=== PATIENT | male | born 1975 | race Caucasian/White ===

== ENCOUNTER 2018-05-20 15:46 | Inpatient (IN) | payer MEDICAID ==
[2018-05-20] MEDS ORDERED: Acetaminophen Soln 650 MG/20.3 ML UD Cup PO ONE (16:20)
--- NOTE | 2018-05-20 16:21 | EDM.PDOC ---
ED HPI GENERAL MEDICAL PROBLEM - General Chief Complaint: ENT Problem Stated Complaint: FLU LIKE SYMPTOMS, FEVER, SWOLLEN THROAT Time Seen by Provider: 05/20/18 16:16 Source of Information: Reports: Patient History Limitations: Reports: No Limitations - History of Present Illness INITIAL COMMENTS - FREE TEXT/NARRATIVE: Pt with sore throat x 2 days. With diarrhea since last night. Fever x 2 days. Has not taken Tylenol or Motrin. With difficulty swallowing. No vomiting. Not taking in many liquids today. Onset: Sudden Onset Date: 05/18/18 Duration: Getting Worse Quality: Reports: Sharp Severity: Moderate Improves with: Reports: None Worsens with: Reports: Eating Associated Symptoms: Reports: Fever/Chills, Headaches, Loss of Appetite, Other ( diarrhea) Generalized Pain Score (Numeric/FACES): 8 - Related Data Allergies Allergy/AdvReac Type Severity Reaction Status Date / Time Tetanus Vaccines and Toxoid Allergy Edema Verified 05/20/18 16:01 Home Meds: Home Meds Penicillin V Potassium [IJD: Penicillin V Potassium] 500 mg PO .EVERY 6 HOURS # 40 tab 10/03/16 [Rx] Past Medical History - Past Health History Medical/Surgical History: Denies Medical/Surgical History - Infectious Disease History Infectious Disease History: Reports: Chicken Pox - Past Surgical History Musculoskeletal Surgical History: Reports: Arthroscopic Knee Social & Family History - Tobacco Use Smoking Status *Q: Current Every Day Smoker Years of Tobacco use: 20 Packs/Tins Daily: 0.5 - Caffeine Use Caffeine Use: Reports: Coffee, Soda, Tea - Recreational Drug Use Recreational Drug Use: No ED ROS ENT - Review of Systems Review Of Systems: See Below Constitutional: Reports: Fever, Chills, Weakness, Decreased Appetite HEENT: Reports: Throat Pain, Throat Swelling Respiratory: Reports: No Symptoms Cardiovascular: Reports: No Symptoms Endocrine: Reports: No Symptoms GI/Abdominal: Reports: Diarrhea Musculoskeletal: Reports: No Symptoms Skin: Reports: No Symptoms ED EXAM, ENT - Physical Exam Exam: See Below Exam Limited By: No Limitations General Appearance: Alert, WD/WN, Moderate Distress, Obese, Other (sweating) Ears: Normal External Exam, Normal Canal, Hearing Grossly Normal, Normal TMs, TM Erythema (right) Nose: Normal Inspection, Normal Mucousa, No Blood Mouth/Throat: Normal Gums, Normal Lips, Normal Teeth, Muffled Voice, Pharyngeal Erythema, Throat Pain, Tonsillar Erythema, Other (petechial rash to posterior pharynx) Head: Atraumatic, Normocephalic Neck: Normal Inspection, Supple, Non-Tender, Full Range of Motion Respiratory/Chest: No Respiratory Distress, Lungs Clear, Normal Breath Sounds, No Accessory Muscle Use, Chest Non-Tender Cardiovascular: Normal Peripheral Pulses, Regular Rate, Rhythm, No Edema, No Gallop, No JVD, No Murmur, No Rub GI/Abdominal: Normal Bowel Sounds, Soft, Non-Tender, No Organomegaly, No Distention, No Abnormal Bruit, No Mass Extremities: Normal Inspection, Normal Range of Motion, Non-Tender, No Pedal Edema, Normal Capillary Refill Neurological: Alert, Oriented, CN II-XII Intact, Normal Cognition, Normal Gait, Normal Reflexes, No Motor/Sensory Deficits Psychiatric: Normal Affect, Normal Mood Course - Vital Signs Last Recorded V/S: Last Vital Signs Temp 101.2 F H 05/20/18 17:19 Pulse 100 05/20/18 15:56 Resp 18 05/20/18 15:56 BP 132/83 05/20/18 15:56 Pulse Ox 95 05/20/18 15:56 - Orders/Labs/Meds Orders: Active Orders 24 hr Category Date Time Status Soft Tissue Neck w Cont [CT] Stat Exams 05/20/18 17:23 Taken CULTURE STREP A CONFIRMATION [] Stat Lab 05/20/18 16:00 Results STREP SCRN A RAPID W CULT CONF [] Stat Lab 05/20/18 16:00 Results Ampicillin/Sulbactam Na [Unasyn] 1.5 gm Med 05/20/18 19:15 Ordered Sodium Chloride 0.9% [Normal Saline] 50 ml IV Q6H Iopamidol [Isovue-300 (61%)] Med 05/20/18 17:45 Active 100 ml IV . DIRECTED Sodium Chloride 0.9% [Normal Saline] 100 ml Med 05/20/18 17:45 Active IV ASDIRECTED Medication Orders Sodium Chloride (Normal Saline) 100 mls @ 3 mls/sec IV ASDIRECTED SOUMYA Last Admin: 05/20/18 17:46 Dose: 3 mls/sec Ampicillin Sodium/Sulbactam (Sodium 1.5 gm/ Sodium Chloride) 50 mls @ 100 mls/ hr IV Q6H SOUMYA Iopamidol (Isovue-300 (61%)) 100 ml IV . DIRECTED SOUMYA Last Admin: 05/20/18 17:46 Dose: 100 ml Labs: Laboratory Tests 05/20/18 05/20/18 05/20/18 Range/Units 16:34 16:34 16:34 WBC 18.6 H (4.5-11.0) K/uL RBC 5.40 (4.30-5.90) M/uL Hgb 15.5 H (12.0-15.0) g/dL Hct 45.2 (40.0-54.0) % MCV 84 (80-98) fL MCH 29 (27-31) pg MCHC 34 (32-36) % Plt Count 242 (150-400) K/uL Neut % (Auto) 84 H (36-66) % Lymph % (Auto) 6 L (24-44) % Citrus % (Auto) 11 H (2-6) % Eos % (Auto) 0 L (2-4) % Baso % (Auto) 0 (0-1) % Sodium 131 L (140-148) mmol/L Potassium 3.5 L (3.6-5.2) mmol/L Chloride 97 L (100-108) mmol/L Carbon Dioxide 27 (21-32) mmol/L Anion Gap 10.5 (5.0-14.0) mmol/L BUN 6 L (7-18) mg/dL Creatinine 1.1 (0.8-1.3) mg/dL Est Cr Clr Drug Dosing 93.17 mL/min Estimated GFR (MDRD) > 60 (>60) Glucose 117 H (74-106) mg/dL Lactic Acid (0.4-2.0) mmol/L Calcium 8.6 (8.5-10.1) mg/dL Total Bilirubin 0.8 (0.2-1.0) mg/dL AST 19 (15-37) U/L ALT 39 (12-78) U/L Alkaline Phosphatase 82 (46-116) U/L Total Protein 7.8 (6.4-8.2) g/dL Albumin 3.4 (3.4-5.0) g/dL Globulin 4.4 H (2.3-3.5) g/dL Albumin/Globulin Ratio 0.8 L (1.2-2.2) Monoscreen Negative (NEGATIVE) 05/20/18 Range/Units 17:01 WBC (4.5-11.0) K/uL RBC (4.30-5.90) M/uL Hgb (12.0-15.0) g/dL Hct (40.0-54.0) % MCV (80-98) fL MCH (27-31) pg MCHC (32-36) % Plt Count (150-400) K/uL Neut % (Auto) (36-66) % Lymph % (Auto) (24-44) % Citrus % (Auto) (2-6) % Eos % (Auto) (2-4) % Baso % (Auto) (0-1) % Sodium (140-148) mmol/L Potassium (3.6-5.2) mmol/L Chloride (100-108) mmol/L Carbon Dioxide (21-32) mmol/L Anion Gap (5.0-14.0) mmol/L BUN (7-18) mg/dL Creatinine (0.8-1.3) mg/dL Est Cr Clr Drug Dosing mL/min Estimated GFR (MDRD) (>60) Glucose (74-106) mg/dL Lactic Acid 1.5 (0.4-2.0) mmol/L Calcium (8.5-10.1) mg/dL Total Bilirubin (0.2-1.0) mg/dL AST (15-37) U/L ALT (12-78) U/L Alkaline Phosphatase (46-116) U/L Total Protein (6.4-8.2) g/dL Albumin (3.4-5.0) g/dL Globulin (2.3-3.5) g/dL Albumin/Globulin Ratio (1.2-2.2) Monoscreen (NEGATIVE) Meds: Medications Generic Name Dose Route Start Last Admin Trade Name Freq PRN Reason Stop Dose Admin Sodium Chloride 100 mls @ 3 mls/sec 05/20/18 17:45 05/20/18 17:46 Normal Saline IV 3 mls/sec ASDIRECTED SOUMYA Administration Ampicillin Sodium/Sulbactam 50 mls @ 100 mls/hr 05/20/18 19:15 Sodium 1.5 gm/ Sodium Chloride IV Q6H SOUMYA Iopamidol 100 ml 05/20/18 17:45 05/20/18 17:46 Isovue-300 (61%) IV 100 ml . DIRECTED SOUMYA Administration Discontinued Medications Generic Name Dose Route Start Last Admin Trade Name Nhan PRN Reason Stop Dose Admin Acetaminophen 650 mg 05/20/18 16:20 05/20/18 16:30 Tylenol PO 05/20/18 16:21 650 mg ONETIME ONE Administration Dexamethasone 4 mg 05/20/18 18:49 05/20/18 18:59 Dexamethasone IVPUSH 05/20/18 18:50 4 mg ONETIME ONE Administration Sodium Chloride 1,000 mls @ 999 mls/min 05/20/18 16:59 05/20/18 17:20 Normal Saline IV 05/20/18 17:00 999 mls/min .BOLUS ONE Administration Sodium Chloride 1,000 mls @ 125 mls/min 05/20/18 18:55 05/20/18 18:57 Normal Saline IV 05/20/18 19:02 125 mls/min .BOLUS ONE Administration Departure - Departure Time of Disposition: 19:12 Disposition: Admitted As Inpatient 66 Condition: Fair Clinical Impression: Peritonsillar abscess - Discharge Information *PRESCRIPTION DRUG MONITORING PROGRAM REVIEWED*: Not Applicable *COPY OF PRESCRIPTION DRUG MONITORING REPORT IN PATIENT RAI: Not Applicable Referrals: PCP,None [Primary Care Provider] - Forms: ED Department Discharge Additional Instructions: Tylenol liquid given with reduction in fever. Labs with elevated WBC. CT of neck with contrast shows right peritonsillar abscess. ENT Dr Raza from [facility], consulted who recommends admission for IV antibiotics based on size of abscess. Also dehydration per labs noted. NS 1000ml infused. Additional NS initiated @125/hr. Decadron 4mg IV ordered also for comfort measures. Dr Govea consulted for admission. Pt significant other agrees with plan. IV Unasyn initiated. - Problem List & Annotations (1) Peritonsillar abscess SNOMED Code(s): 82468010 Code(s): J36 - PERITONSILLAR ABSCESS Status: Acute Priority: Low Current Visit: Yes - My Orders Last 24 Hours: My Active Orders 05/20/18 16:00 CULTURE STREP A CONFIRMATION [RM] Stat STREP SCRN A RAPID W CULT CONF [RM] Stat 05/20/18 17:23 Soft Tissue Neck w Cont [CT] Stat 05/20/18 17:45 Iopamidol [Isovue-300 (61%)] 100 ml IV . DIRECTED Sodium Chloride 0.9% [Normal Saline] 100 ml IV ASDIRECTED 05/20/18 19:15 Ampicillin/Sulbactam Na [Unasyn] 1.5 gm Sodium Chloride 0.9% [Normal Saline] 50 ml IV Q6H - Assessment/Plan Last 24 Hours: My Active Orders 05/20/18 16:00 CULTURE STREP A CONFIRMATION [] Stat STREP SCRN A RAPID W CULT CONF [RM] Stat 05/20/18 17:23 Soft Tissue Neck w Cont [CT] Stat 05/20/18 17:45 Iopamidol [Isovue-300 (61%)] 100 ml IV . DIRECTED Sodium Chloride 0.9% [Normal Saline] 100 ml IV ASDIRECTED 05/20/18 19:15 Ampicillin/Sulbactam Na [Unasyn] 1.5 gm Sodium Chloride 0.9% [Normal Saline] 50 ml IV Q6H
[2018-05-20] MEDS ORDERED: Sodium Chloride 0.9% 1,000 ML IV ONE ×2 (16:59→18:55)
[2018-05-20] MEDS ORDERED: Sodium Chloride 0.9% 100 ML IV SCH (17:45)
[2018-05-20] MEDS ORDERED: Iopamidol 612 MG/ML 100 ML Bottle IV SCH (17:45)
[2018-05-20] MEDS ORDERED: Dexamethasone 4 MG/ML SDV IVPUSH ONE (18:49)
[2018-05-20] MEDS ORDERED: Ampicillin/Sulbactam Na 1.5 GM in Sodium Chloride 0.9% 50 ML IV SCH (19:15)
[2018-05-20] MEDS ORDERED: Sodium Chloride 0.9% 1,000 ML IV SCH (20:07)
[2018-05-20] MEDS ORDERED: Ondansetron 4 MG/2 ML SDV IV PRN (20:07)
[2018-05-20] MEDS ORDERED: Sodium Chloride 0.9% 10 ML Syringe FLUSH PRN (20:07)
--- NOTE | 2018-05-20 20:22 | PCM.HP ---
H&P History of Present Illness - General Date of Service: 05/20/18 Admit Problem/Dx: Admission Diagnosis/Problem Admission Diagnosis/Problem Abscess Source of Information: Patient, Family, Provider, RN Notes Reviewed History Limitations: Reports: No Limitations - History of Present Illness Initial Comments - Free Text/Narative: Mr. Medina is a 42-year-old gentleman who is admitted through the emergency department with pharyngitis, and dysphagia, as well as fever and chills. Symptoms have been per present in progressive over the past 2 days, more severe today with significant difficulty in swallowing because of pain. On evaluation in emergency department he was noted have temperature elevation as well as leukocytosis. Strep screen was negative as well as a Monospot. CT scan of the neck shows evidence of tonsillitis with a peritonsillar abscess. Abscess found to be 1.2-1.4 cm in size. 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 He denies any significant difficulty with bleeding but does note significant pain and soreness with swallowing. Generalized Pain Score (Numeric/FACES): 8 - Related Data Allergies/Adverse Reactions: Allergies Allergy/AdvReac Type Severity Reaction Status Date / Time Tetanus Vaccines and Toxoid Allergy Edema Verified 05/20/18 16:01 Home Medications: Home Meds Penicillin V Potassium [IJD: Penicillin V Potassium] 500 mg PO .EVERY 6 HOURS # 40 tab 10/03/16 [Rx] Past Medical History - Past Health History Medical/Surgical History: Denies Medical/Surgical History - Infectious Disease History Infectious Disease History: Reports: Chicken Pox - Past Surgical History Musculoskeletal Surgical History: Reports: Arthroscopic Knee Social & Family History - Tobacco Use Smoking Status *Q: Current Every Day Smoker Years of Tobacco use: 20 Packs/Tins Daily: 0.5 - Caffeine Use Caffeine Use: Reports: Coffee, Soda, Tea - Recreational Drug Use Recreational Drug Use: No H&P Review of Systems - Review of Systems: Review Of Systems: See Below General: Reports: Fever, Chills, Malaise, Weakness, Diaphoresis HEENT: Reports: Dysphasia, Sore Throat. Denies: Ear Pain, Headaches Pulmonary: Reports: No Symptoms Cardiovascular: Reports: No Symptoms Gastrointestinal: Reports: No Symptoms Genitourinary: Reports: No Symptoms Musculoskeletal: Reports: No Symptoms Skin: Reports: No Symptoms Psychiatric: Reports: No Symptoms Neurological: Reports: No Symptoms Hematologic/Lymphatic: Reports: No Symptoms Immunologic: Reports: No Symptoms Exam - Exam Exam: See Below - Vital Signs Vital Signs: Last Vital Signs Temp 97.6 F 05/20/18 19:36 Pulse 74 05/20/18 19:36 Resp 17 05/20/18 19:36 BP 122/66 05/20/18 19:36 Pulse Ox 96 05/20/18 19:36 Weight: 240 lb - Exam Quality Assessment: DVT Prophylaxis General: Alert, Oriented, Cooperative, Moderate Distress HEENT: Conjunctiva Clear, Hearing Intact, Mucosa Moist & [place], Normal Nasal Septum, Posterior Pharynx Clear, Pupils Equal Neck: Supple, Trachea Midline, +2 Carotid Pulse wo Bruit Lungs: Clear to Auscultation, Normal Respiratory Effort Cardiovascular: Regular Rate, Regular Rhythm, Normal S1, Normal S2. No: Systolic Murmur, Diastolic Murmur GI/Abdominal Exam: Soft, Non-Tender, No Organomegaly, No Distention Back Exam: Normal Inspection, Full Range of Motion Extremities: Non-Tender, No Pedal Edema Skin: Warm, Dry, Intact Neurological: Cranial Nerves Intact, Strength Equal Bilateral, Normal Speech, Normal Tone, Sensation Intact. No: Focal Deficit Neuro Extensive - Mental Status: Alert, Oriented x3, Normal Mood/Affect, Normal Cognition, Memory Intact - Patient Data Lab Results Last 24 hrs: Laboratory Results - last 24 hr 05/20/18 05/20/18 05/20/18 Range/Units 16:34 16:34 16:34 WBC 18.6 H (4.5-11.0) K/uL RBC 5.40 (4.30-5.90) M/uL Hgb 15.5 H (12.0-15.0) g/dL Hct 45.2 (40.0-54.0) % MCV 84 (80-98) fL MCH 29 (27-31) pg MCHC 34 (32-36) % Plt Count 242 (150-400) K/uL Neut % (Auto) 84 H (36-66) % Lymph % (Auto) 6 L (24-44) % Mcminn % (Auto) 11 H (2-6) % Eos % (Auto) 0 L (2-4) % Baso % (Auto) 0 (0-1) % Sodium 131 L (140-148) mmol/L Potassium 3.5 L (3.6-5.2) mmol/L Chloride 97 L (100-108) mmol/L Carbon Dioxide 27 (21-32) mmol/L Anion Gap 10.5 (5.0-14.0) mmol/L BUN 6 L (7-18) mg/dL Creatinine 1.1 (0.8-1.3) mg/dL Est Cr Clr Drug Dosing 93.17 mL/min Estimated GFR (MDRD) > 60 (>60) Glucose 117 H (74-106) mg/dL Lactic Acid (0.4-2.0) mmol/L Calcium 8.6 (8.5-10.1) mg/dL Total Bilirubin 0.8 (0.2-1.0) mg/dL AST 19 (15-37) U/L ALT 39 (12-78) U/L Alkaline Phosphatase 82 (46-116) U/L Total Protein 7.8 (6.4-8.2) g/dL Albumin 3.4 (3.4-5.0) g/dL Globulin 4.4 H (2.3-3.5) g/dL Albumin/Globulin Ratio 0.8 L (1.2-2.2) Monoscreen Negative (NEGATIVE) 05/20/18 Range/Units 17:01 WBC (4.5-11.0) K/uL RBC (4.30-5.90) M/uL Hgb (12.0-15.0) g/dL Hct (40.0-54.0) % MCV (80-98) fL MCH (27-31) pg MCHC (32-36) % Plt Count (150-400) K/uL Neut % (Auto) (36-66) % Lymph % (Auto) (24-44) % Mcminn % (Auto) (2-6) % Eos % (Auto) (2-4) % Baso % (Auto) (0-1) % Sodium (140-148) mmol/L Potassium (3.6-5.2) mmol/L Chloride (100-108) mmol/L Carbon Dioxide (21-32) mmol/L Anion Gap (5.0-14.0) mmol/L BUN (7-18) mg/dL Creatinine (0.8-1.3) mg/dL Est Cr Clr Drug Dosing mL/min Estimated GFR (MDRD) (>60) Glucose (74-106) mg/dL Lactic Acid 1.5 (0.4-2.0) mmol/L Calcium (8.5-10.1) mg/dL Total Bilirubin (0.2-1.0) mg/dL AST (15-37) U/L ALT (12-78) U/L Alkaline Phosphatase (46-116) U/L Total Protein (6.4-8.2) g/dL Albumin (3.4-5.0) g/dL Globulin (2.3-3.5) g/dL Albumin/Globulin Ratio (1.2-2.2) Monoscreen (NEGATIVE) Result Diagrams: 05/20/18 16:34 05/20/18 16:34 Obey Results Last 24 hrs: Microbiology 05/20/18 16:00 Group A Streptococcus Rapid Screen - Final Throat NEGATIVE STREP A SCREEN *Q Meaningful Use (ADM) - VTE Risk Assess *Q Each Risk Factor Represents 1 Point: Age 41 - 59 years Total Score 1 Point Risk Factors: 1 Each Risk Factor Represents 2 Points: None Total Score 2 Point Risk Factors: 0 Each Risk Factor Represents 3 Points: None Total Score 3 Point Risk Factors: 0 Each Risk Factor Represents 5 Points: None Total Score 5 Point Risk Factors: 0 Venous Thromboembolism Risk Factor Score *Q: 1 Problem List Initiated/Reviewed/Updated: Yes Orders Last 24hrs: Active Orders 24 hr Category Date Time Status Patient Status [ADT] Routine ADT 05/20/18 20:07 Active Ambulate [RC] QID Care 05/20/18 20:07 Active Ambulate [RC] QID Care 05/20/18 20:07 Active Height and Weight [RC] DAILY Care 05/20/18 20:07 Active Intake and Output [RC] QSHIFT Care 05/20/18 20:07 Active May Shower [RC] ASDIRECTED Care 05/20/18 20:07 Active Notify Provider Vital Signs [RC] ASDIRECTED Care 05/20/18 20:07 Active Oxygen Therapy [RC] PRN Care 05/20/18 20:07 Active Peripheral IV Care [RC] . DIRECTED Care 05/20/18 20:07 Active Up ad Yvrose [RC] ASDIRECTED Care 05/20/18 20:07 Active Up to Chair [RC] QID Care 05/20/18 20:07 Active VTE/DVT Education [RC] Per Unit Routine Care 05/20/18 20:07 Active Vital Signs [RC] Q4H Care 05/20/18 20:07 Active Clear Liquid Diet [DIET] Diet 05/20/18 Dinner Active Soft Tissue Neck w Cont [CT] Stat Exams 05/20/18 17:23 Taken BASIC METABOLIC PANEL,BMP [CHEM] AM Lab 05/21/18 05:11 Ordered CBC WITH AUTO DIFF [HEME] AM Lab 05/21/18 05:11 Ordered CULTURE STREP A CONFIRMATION [RM] Stat Lab 05/20/18 16:00 Results STREP SCRN A RAPID W CULT CONF [RM] Stat Lab 05/20/18 16:00 Results Acetaminophen [Tylenol] Med 05/20/18 20:07 Active 650 mg PO Q4H PRN Ampicillin/Sulbactam Na [Unasyn] 1.5 gm Med 05/20/18 20:07 Ordered Sodium Chloride 0.9% [Normal Saline] 50 ml IV Q6H Dexamethasone Med 05/21/18 07:00 Once 4 mg IVPUSH ONETIME ONE HYDROmorphone [Dilaudid] Med 05/20/18 20:07 Ordered 0.5 mg IVPUSH Q3H PRN Lactobacillus Rhamnosus GG [Culturelle] Med 05/20/18 21:00 Ordered 1 cap PO BID Nicotine [Habitrol] Med 05/20/18 20:07 Ordered 21 mg TRDERM DAILY Ondansetron [Zofran] Med 05/20/18 20:07 Ordered 4 mg IV Q4H PRN Sodium Chloride 0.9% [Normal Saline] 1,000 ml Med 05/20/18 20:07 Ordered IV ASDIRECTED Sodium Chloride 0.9% [Saline Flush] Med 05/20/18 20:07 Ordered 10 ml FLUSH ASDIRECTED PRN Peripheral IV Insertion Adult [OM.PC] Routine Oth 05/20/18 20:07 Ordered Resuscitation Status Routine Resus Stat 05/20/18 19:40 Ordered Medication Orders Acetaminophen (Tylenol) 650 mg PO Q4H PRN PRN Reason: Pain (Mild 1-3)/fever Dexamethasone (Dexamethasone) 4 mg IVPUSH ONETIME ONE Stop: 05/21/18 07:01 Hydromorphone HCl (Dilaudid) 0.5 mg IVPUSH Q3H PRN PRN Reason: Pain Ampicillin Sodium/Sulbactam (Sodium 1.5 gm/ Sodium Chloride) 50 mls @ 100 mls/ hr IV Q6H SOUMYA Sodium Chloride (Normal Saline) 1,000 mls @ 125 mls/hr IV ASDIRECTED SOUMYA Lactobacillus Rhamnosus (Culturelle) 1 cap PO BID SOUMYA Nicotine (Habitrol) 21 mg TRDERM DAILY [facility] Ondansetron HCl (Zofran) 4 mg IV Q4H PRN PRN Reason: Nausea/Vomiting Sodium Chloride (Saline Flush) 10 ml FLUSH ASDIRECTED PRN PRN Reason: Keep Vein Open Assessment/Plan Comment:: ASSESSMENT AND PLAN PERITONSILLAR ABSCESS-associated with significant pain and difficulty swallowing , no airway compromise. Identified on CT scan, after review with ENT it's felt to be of small enough size that it can be managed conservatively with IV antibiotic therapy. -Clear liquid diet -Pain medication as needed -Unasyn 1.5 g IV every 6 hours -Decadron IV given in the emergency department -Symptoms worsen or he fails to improve with plan and management, consider repeat CT scan and referral to ENT MAINTENANCE ISSUES -DVT prophylaxis; ambulation -GI prophylaxis; not indicated -Leon catheter; not indicated -Nutrition; clear liquid diet -Nicotine dependence; 21 mg nicotinic patch CODE STATUS-FULL CODE ADMISSION STATUS-patient will be admitted to inpatient status, expect at least a 2 night hospital stay for evaluation and management of problems as outlined above. At the time of this admission I do not reasonably expected evaluation and management of this problem will require more than a 96 hour hospital stay. DISPOSITION-anticipate discharge to home after the hospital stay. PRIMARY CARE PROVIDER-
[2018-05-20] MEDS: Nicotine 21 MG/24 Hr Patch TRDERM SCH (21:41)
[2018-05-20] MEDS: Lactobacillus Rhamnosus GG (Probiotic) Cap PO SCH (21:42)
[2018-05-20] MEDS: Acetaminophen 325 MG Tab PO PRN (21:46)
[2018-05-20] MEDS: Ampicillin/Sulbactam Na 1.5 GM in Sodium Chloride 0.9% 50 ML IV SCH (22:17)
[2018-05-21] MEDS ORDERED: Ampicillin/Sulbactam Na 1.5 GM in Sodium Chloride 0.9% 50 ML IV SCH (03:00)
[2018-05-21] MEDS ORDERED: Dexamethasone 4 MG/ML SDV IVPUSH ONE (07:00)
[2018-05-21] MEDS ORDERED: Potassium Chloride 40 MEQ in Premix Bag 1 BAG IV ONE (08:20)
[2018-05-21] MEDS: Lactobacillus Rhamnosus GG (Probiotic) Cap PO SCH ×2 (09:00→21:14)
[2018-05-21] MEDS: Nicotine 21 MG/24 Hr Patch TRDERM SCH (09:01)
[2018-05-21] MEDS: Acetaminophen 325 MG Tab PO PRN ×2 (09:20→21:14)
[2018-05-21] MEDS: HYDROmorphone 0.5 MG/0.5 ML Syringe IVPUSH PRN ×4 (09:20→21:14)
[2018-05-21] MEDS: Ampicillin/Sulbactam Na 1.5 GM in Sodium Chloride 0.9% 50 ML IV SCH ×3 (10:40→21:22)
--- NOTE | 2018-05-21 10:41 | PCM.PN ---
- General Info Date of Service: 05/21/18 Subjective Update: Mr. Medina has remained stable since admission, he did experience temperature elevation just after admission but has had no recurrence since then. Swallowing seems to be modestly improved and he reports decreased level of pain. Vital signs have otherwise been stable and he denies significant difficulty with breathing. Functional Status: Reports: Pain Controlled, Tolerating Diet, Ambulating, Urinating - Review of Systems General: Reports: Fever, Weakness, Chills HEENT: Reports: Sore Throat Pulmonary: Reports: No Symptoms Cardiovascular: Reports: No Symptoms Gastrointestinal: Reports: No Symptoms - Patient Data Vitals - Most Recent: Last Vital Signs Temp 96.5 F 05/21/18 07:46 Pulse 64 05/21/18 07:46 Resp 18 05/21/18 07:46 BP 118/70 05/21/18 07:46 Pulse Ox 98 05/21/18 07:46 Weight - Most Recent: 247 lb 3.2 oz I&O - Last 24 Hours: Intake & Output 05/20/18 05/21/18 05/21/18 22:59 06:59 14:59 Intake Total 1130 Output Total 525 Balance -525 1130 Lab Results Last 24 Hours: Laboratory Results - last 24 hr 05/20/18 05/20/18 05/20/18 Range/Units 16:34 16:34 16:34 WBC 18.6 H (4.5-11.0) K/uL RBC 5.40 (4.30-5.90) M/uL Hgb 15.5 H (12.0-15.0) g/dL Hct 45.2 (40.0-54.0) % MCV 84 (80-98) fL MCH 29 (27-31) pg MCHC 34 (32-36) % Plt Count 242 (150-400) K/uL Neut % (Auto) 84 H (36-66) % Lymph % (Auto) 6 L (24-44) % [place] % (Auto) 11 H (2-6) % Eos % (Auto) 0 L (2-4) % Baso % (Auto) 0 (0-1) % Sodium 131 L (140-148) mmol/L Potassium 3.5 L (3.6-5.2) mmol/L Chloride 97 L (100-108) mmol/L Carbon Dioxide 27 (21-32) mmol/L Anion Gap 10.5 (5.0-14.0) mmol/L BUN 6 L (7-18) mg/dL Creatinine 1.1 (0.8-1.3) mg/dL Est Cr Clr Drug Dosing 93.17 mL/min Estimated GFR (MDRD) > 60 (>60) Glucose 117 H (74-106) mg/dL Lactic Acid (0.4-2.0) mmol/L Calcium 8.6 (8.5-10.1) mg/dL Total Bilirubin 0.8 (0.2-1.0) mg/dL AST 19 (15-37) U/L ALT 39 (12-78) U/L Alkaline Phosphatase 82 (46-116) U/L Total Protein 7.8 (6.4-8.2) g/dL Albumin 3.4 (3.4-5.0) g/dL Globulin 4.4 H (2.3-3.5) g/dL Albumin/Globulin Ratio 0.8 L (1.2-2.2) Monoscreen Negative (NEGATIVE) 05/20/18 05/21/18 05/21/18 Range/Units 17:01 04:23 04:23 WBC 17.4 H (4.5-11.0) K/uL RBC 4.94 (4.30-5.90) M/uL Hgb 14.2 (12.0-15.0) g/dL Hct 42.1 (40.0-54.0) % MCV 85 (80-98) fL MCH 29 (27-31) pg MCHC 34 (32-36) % Plt Count 232 (150-400) K/uL Neut % (Auto) 89 H (36-66) % Lymph % (Auto) 4 L (24-44) % [place] % (Auto) 6 (2-6) % Eos % (Auto) 0 L (2-4) % Baso % (Auto) 0 (0-1) % Sodium 141 (140-148) mmol/L Potassium 3.3 L (3.6-5.2) mmol/L Chloride 105 (100-108) mmol/L Carbon Dioxide 26 (21-32) mmol/L Anion Gap 13.3 (5.0-14.0) mmol/L BUN 8 (7-18) mg/dL Creatinine 1.1 (0.8-1.3) mg/dL Est Cr Clr Drug Dosing 92.79 mL/min Estimated GFR (MDRD) > 60 (>60) Glucose 141 H (74-106) mg/dL Lactic Acid 1.5 (0.4-2.0) mmol/L Calcium 8.2 L (8.5-10.1) mg/dL Total Bilirubin (0.2-1.0) mg/dL AST (15-37) U/L ALT (12-78) U/L Alkaline Phosphatase (46-116) U/L Total Protein (6.4-8.2) g/dL Albumin (3.4-5.0) g/dL Globulin (2.3-3.5) g/dL Albumin/Globulin Ratio (1.2-2.2) Monoscreen (NEGATIVE) Obey Results Last 24 Hours: Microbiology 05/20/18 16:00 Group A Streptococcus Rapid Screen - Final Throat NEGATIVE STREP A SCREEN Med Orders - Current: Current Medications Acetaminophen (Tylenol) 650 mg PO Q4H PRN PRN Reason: Pain (Mild 1-3)/fever Last Admin: 05/21/18 09:20 Dose: 650 mg Hydromorphone HCl (Dilaudid) 0.5 mg IVPUSH Q3H PRN PRN Reason: Pain Last Admin: 05/21/18 09:20 Dose: 0.5 mg Ampicillin Sodium/Sulbactam (Sodium 1.5 gm/ Sodium Chloride) 50 mls @ 100 mls/ hr IV Q6H [facility] Potassium Chloride 20 meq/Lidocaine HCl 2 ml/ Sodium Chloride 112 mls @ 56 mls/ hr IV Q2H [facility] Stop: 05/21/18 13:29 Lactobacillus Rhamnosus (Culturelle) 1 cap PO BID [facility] Last Admin: 05/21/18 09:00 Dose: 1 cap Nicotine (Habitrol) 21 mg TRDERM DAILY [facility] Last Admin: 05/21/18 09:01 Dose: 21 mg Ondansetron HCl (Zofran) 4 mg IV Q4H PRN PRN Reason: Nausea/Vomiting Sodium Chloride (Saline Flush) 10 ml FLUSH ASDIRECTED PRN PRN Reason: Keep Vein Open Discontinued Medications Acetaminophen (Tylenol) 650 mg PO ONETIME ONE Stop: 05/20/18 16:21 Last Admin: 05/20/18 16:30 Dose: 650 mg Dexamethasone (Dexamethasone) 4 mg IVPUSH ONETIME ONE Stop: 05/20/18 18:50 Last Admin: 05/20/18 18:59 Dose: 4 mg Dexamethasone (Dexamethasone) 4 mg IVPUSH ONETIME ONE Stop: 05/21/18 07:01 Last Admin: 05/21/18 07:52 Dose: 4 mg Sodium Chloride (Normal Saline) 1,000 mls @ 999 mls/min IV .BOLUS ONE Stop: 05/20/18 17:00 Last Admin: 05/20/18 17:20 Dose: 999 mls/min Sodium Chloride (Normal Saline) 100 mls @ 3 mls/sec IV ASDIRECTED [facility] Last Admin: 05/20/18 17:46 Dose: 3 mls/sec Sodium Chloride (Normal Saline) 1,000 mls @ 125 mls/min IV .BOLUS ONE Stop: 05/20/18 19:02 Last Admin: 05/20/18 18:57 Dose: 125 mls/min Ampicillin Sodium/Sulbactam (Sodium 1.5 gm/ Sodium Chloride) 50 mls @ 100 mls/ hr IV Q6H [facility] Last Admin: 05/20/18 19:31 Dose: 100 mls/hr Ampicillin Sodium/Sulbactam (Sodium 1.5 gm/ Sodium Chloride) 50 mls @ 100 mls/ hr IV Q6H [facility] Last Admin: 05/20/18 22:17 Dose: Not Given Sodium Chloride (Normal Saline) 1,000 mls @ 125 mls/hr IV ASDIRECTED [facility] Last Admin: 05/21/18 02:41 Dose: 125 mls/hr Ampicillin Sodium/Sulbactam (Sodium 1.5 gm/ Sodium Chloride) 50 mls @ 100 mls/ hr IV Q6H [facility] Last Admin: 05/21/18 03:32 Dose: 100 mls/hr Iopamidol (Isovue-300 (61%)) 100 ml IV . DIRECTED [facility] Last Admin: 05/20/18 17:46 Dose: 100 ml - Exam Quality Assessment: DVT Prophylaxis General: Alert, Oriented, Cooperative, Mild Distress Lungs: Clear to Auscultation, Normal Respiratory Effort Cardiovascular: Regular Rate, Regular Rhythm, No Murmurs GI/Abdominal Exam: Soft, Non-Tender, No Organomegaly, No Distention - Problem List Review Problem List Initiated/Reviewed/Updated: Yes - My Orders Last 24 Hours: My Active Orders 05/20/18 19:40 Resuscitation Status Routine 05/20/18 20:00 Nicotine [Habitrol] 21 mg TRDERM DAILY 05/20/18 20:07 Patient Status [ADT] Routine Ambulate [RC] QID Height and Weight [RC] DAILY Intake and Output [RC] QSHIFT May Shower [RC] ASDIRECTED Notify Provider Vital Signs [RC] ASDIRECTED Oxygen Therapy [RC] PRN Peripheral IV Care [RC] Q12H Up ad Yvrose [RC] ASDIRECTED Up to Chair [RC] QID VTE/DVT Education [RC] Per Unit Routine Vital Signs [RC] Q4H Acetaminophen [Tylenol] 650 mg PO Q4H PRN HYDROmorphone [Dilaudid] 0.5 mg IVPUSH Q3H PRN Ondansetron [Zofran] 4 mg IV Q4H PRN Sodium Chloride 0.9% [Saline Flush] 10 ml FLUSH ASDIRECTED PRN Peripheral IV Insertion Adult [OM.PC] Routine 05/20/18 21:00 Lactobacillus Rhamnosus GG [Culturelle] 1 cap PO BID 05/21/18 09:24 Convert IV to Saline Lock [OM.PC] Routine 05/21/18 09:30 Potassium Chloride 20 meq Lidocaine 1% [Xylocaine 1%] 2 ml Sodium Chloride 0.9 % [Normal Saline] 100 ml IV Q2H 05/21/18 10:00 Ampicillin/Sulbactam Na [Unasyn] 1.5 gm Sodium Chloride 0.9% [Normal Saline] 50 ml IV Q6H 05/21/18 Breakfast GI Soft Low Fiber [Soft Diet] [DIET] 05/22/18 05:00 BASIC METABOLIC PANEL,BMP [CHEM] Timed CBC WITH AUTO DIFF [HEME] Timed - Plan Plan:: ASSESSMENT AND PLAN PERITONSILLAR ABSCESS-associated with significant pain and difficulty swallowing , no airway compromise. Identified on CT scan, after review with ENT it's felt to be of small enough size that it can be managed conservatively with IV antibiotic therapy. Artist improvement in pain and swallowing since admission. -Soft diet -Pain medication as needed -Unasyn 1.5 g IV every 6 hours -Symptoms worsen or he fails to improve with plan and management, consider repeat CT scan and referral to ENT MAINTENANCE ISSUES -DVT prophylaxis; ambulation -GI prophylaxis; not indicated -Leon catheter; not indicated -Nutrition; clear liquid diet -Nicotine dependence; 21 mg nicotinic patch CODE STATUS-FULL CODE ADMISSION STATUS-patient will be admitted to inpatient status, expect at least a 2 night hospital stay for evaluation and management of problems as outlined above. At the time of this admission I do not reasonably expected evaluation and management of this problem will require more than a 96 hour hospital stay. DISPOSITION-anticipate discharge to home after the hospital stay. PRIMARY CARE PROVIDER-
[2018-05-21] MEDS: Potassium Chloride 20 MEQ, Lidocaine 1% 2 ML in Sodium Chloride 0.9% 100 ML IV SCH ×2 (11:33→13:19)
[2018-05-21] MEDS ORDERED: Calcium Carbonate 500 MG Tab.Chew PO ONE (23:45)
[2018-05-22] MEDS: HYDROmorphone 0.5 MG/0.5 ML Syringe IVPUSH PRN ×3 (00:46→19:55)
[2018-05-22] MEDS: Ampicillin/Sulbactam Na 1.5 GM in Sodium Chloride 0.9% 50 ML IV SCH ×4 (03:38→21:55)
[2018-05-22] MEDS ORDERED: Calcium Carbonate 500 MG Tab.Chew PO ONE ×2 (04:04→05:11)
[2018-05-22] MEDS ORDERED: Pantoprazole 40 MG Vial IVPUSH ONE (04:52)
[2018-05-22] MEDS: Nicotine 21 MG/24 Hr Patch TRDERM SCH (09:41)
[2018-05-22] MEDS: Lactobacillus Rhamnosus GG (Probiotic) Cap PO SCH ×2 (09:42→21:49)
[2018-05-22] MEDS: Acetaminophen 325 MG Tab PO PRN ×3 (09:51→21:47)
[2018-05-22] MEDS: Pantoprazole 40 MG Tab.CR PO SCH ×2 (14:06→17:00)
--- NOTE | 2018-05-22 17:36 | PCM.PN ---
- General Info Date of Service: 05/22/18 Subjective Update: Mr. Medina has improved since yesterday with less overall pain and difficulty with swallowing. Vital signs have been stable and he is remained afebrile, white blood cell count is increased since yesterday. Functional Status: Reports: Pain Controlled, Tolerating Diet, Ambulating, Urinating - Review of Systems General: Denies: Fever, Weakness, Chills Pulmonary: Reports: No Symptoms Cardiovascular: Reports: No Symptoms Gastrointestinal: Reports: No Symptoms - Patient Data Vitals - Most Recent: Last Vital Signs Temp 96.3 F 05/22/18 14:00 Pulse 67 05/22/18 14:00 Resp 14 05/22/18 14:00 BP 130/67 05/22/18 14:00 Pulse Ox 99 05/22/18 14:00 Weight - Most Recent: 247 lb 3.199 oz I&O - Last 24 Hours: Intake & Output 05/22/18 05/22/18 05/22/18 06:59 14:59 22:59 Intake Total 50 835 295 Balance 50 835 295 Lab Results Last 24 Hours: Laboratory Results - last 24 hr 05/22/18 05/22/18 Range/Units 05:00 05:00 WBC 21.7 H (4.5-11.0) K/uL RBC 4.84 (4.30-5.90) M/uL Hgb 14.0 (12.0-15.0) g/dL Hct 41.9 (40.0-54.0) % MCV 87 (80-98) fL MCH 29 (27-31) pg MCHC 33 (32-36) % Plt Count 299 (150-400) K/uL Neut % (Auto) 83 H (36-66) % Lymph % (Auto) 8 L (24-44) % [place] % (Auto) 9 H (2-6) % Eos % (Auto) 0 L (2-4) % Baso % (Auto) 0 (0-1) % Sodium 142 (140-148) mmol/L Potassium 4.4 (3.6-5.2) mmol/L Chloride 106 (100-108) mmol/L Carbon Dioxide 31 (21-32) mmol/L Anion Gap 5.4 (5.0-14.0) mmol/L BUN 12 (7-18) mg/dL Creatinine 1.0 (0.8-1.3) mg/dL Est Cr Clr Drug Dosing 102.07 mL/min Estimated GFR (MDRD) > 60 (>60) Glucose 114 H (74-106) mg/dL Calcium 8.4 L (8.5-10.1) mg/dL Obey Results Last 24 Hours: Microbiology 05/20/18 16:00 Quick Strep Confirmation Culture - Preliminary Throat NO GROUP A STREP ISOLATED Group A Streptococcus Rapid Screen - Final NEGATIVE STREP A SCREEN Med Orders - Current: Current Medications Acetaminophen (Tylenol) 650 mg PO Q4H PRN PRN Reason: Pain (Mild 1-3)/fever Last Admin: 05/22/18 17:05 Dose: 650 mg Hydromorphone HCl (Dilaudid) 0.5 mg IVPUSH Q3H PRN PRN Reason: Pain Last Admin: 05/22/18 17:05 Dose: 0.5 mg Ampicillin Sodium/Sulbactam (Sodium 1.5 gm/ Sodium Chloride) 50 mls @ 100 mls/ hr IV Q6H [facility] Last Admin: 05/22/18 17:00 Dose: 100 mls/hr Lactobacillus Rhamnosus (Culturelle) 1 cap PO BID [facility] Last Admin: 05/22/18 09:42 Dose: 1 cap Melatonin (Melatonin) 9 mg PO BEDTIME [facility] Nicotine (Habitrol) 21 mg TRDERM DAILY [facility] Last Admin: 05/22/18 09:41 Dose: Not Given Ondansetron HCl (Zofran) 4 mg IV Q4H PRN PRN Reason: Nausea/Vomiting Pantoprazole Sodium (Protonix) 40 mg PO BIDAC [facility] Last Admin: 05/22/18 17:00 Dose: 40 mg Sodium Chloride (Saline Flush) 10 ml FLUSH ASDIRECTED PRN PRN Reason: Keep Vein Open Discontinued Medications Acetaminophen (Tylenol) 650 mg PO ONETIME ONE Stop: 05/20/18 16:21 Last Admin: 05/20/18 16:30 Dose: 650 mg Calcium Carbonate/Glycine (Tums) 1,000 mg PO ONETIME ONE Stop: 05/21/18 23:46 Last Admin: 05/21/18 23:59 Dose: 1,000 mg Calcium Carbonate/Glycine (Tums) 1,000 mg PO ONETIME ONE Stop: 05/22/18 04:05 Last Admin: 05/22/18 04:28 Dose: 1,000 mg Calcium Carbonate/Glycine (Tums) 1,000 mg PO ONETIME ONE Stop: 05/22/18 05:12 Last Admin: 05/22/18 05:24 Dose: 1,000 mg Dexamethasone (Dexamethasone) 4 mg IVPUSH ONETIME ONE Stop: 05/20/18 18:50 Last Admin: 05/20/18 18:59 Dose: 4 mg Dexamethasone (Dexamethasone) 4 mg IVPUSH ONETIME ONE Stop: 05/21/18 07:01 Last Admin: 05/21/18 07:52 Dose: 4 mg Sodium Chloride (Normal Saline) 1,000 mls @ 999 mls/min IV .BOLUS ONE Stop: 05/20/18 17:00 Last Admin: 05/20/18 17:20 Dose: 999 mls/min Sodium Chloride (Normal Saline) 100 mls @ 3 mls/sec IV ASDIRECTED [facility] Last Admin: 05/20/18 17:46 Dose: 3 mls/sec Sodium Chloride (Normal Saline) 1,000 mls @ 125 mls/min IV .BOLUS ONE Stop: 05/20/18 19:02 Last Admin: 05/20/18 18:57 Dose: 125 mls/min Ampicillin Sodium/Sulbactam (Sodium 1.5 gm/ Sodium Chloride) 50 mls @ 100 mls/ hr IV Q6H [facility] Last Admin: 05/20/18 19:31 Dose: 100 mls/hr Ampicillin Sodium/Sulbactam (Sodium 1.5 gm/ Sodium Chloride) 50 mls @ 100 mls/ hr IV Q6H [facility] Last Admin: 05/20/18 22:17 Dose: Not Given Sodium Chloride (Normal Saline) 1,000 mls @ 125 mls/hr IV ASDIRECTED [facility] Last Admin: 05/21/18 02:41 Dose: 125 mls/hr Ampicillin Sodium/Sulbactam (Sodium 1.5 gm/ Sodium Chloride) 50 mls @ 100 mls/ hr IV Q6H [facility] Last Admin: 05/21/18 03:32 Dose: 100 mls/hr Potassium Chloride 20 meq/Lidocaine HCl 2 ml/ Sodium Chloride 112 mls @ 56 mls/ hr IV Q2H [facility] Stop: 05/21/18 13:29 Last Admin: 09/04/18 13:19 Dose: 56 mls/hr Iopamidol (Isovue-300 (61%)) 100 ml IV . DIRECTED [facility] Last Admin: 05/20/18 17:46 Dose: 100 ml Pantoprazole Sodium (Protonix Iv) 40 mg IVPUSH ONETIME ONE Stop: 05/22/18 04:53 Last Admin: 05/22/18 05:09 Dose: 40 mg - Exam General: Alert, Oriented, Cooperative, Mild Distress Neck: Supple, Trachea Midline Lungs: Clear to Auscultation, Normal Respiratory Effort Cardiovascular: Regular Rate, Regular Rhythm, No Murmurs GI/Abdominal Exam: Soft, Non-Tender, No Organomegaly, No Distention - Problem List Review Problem List Initiated/Reviewed/Updated: Yes - My Orders Last 24 Hours: My Active Orders 05/22/18 10:00 Pantoprazole [ProTONIX] 40 mg PO BIDAC 05/22/18 21:00 Melatonin 9 mg PO BEDTIME 05/23/18 05:00 CBC WITH AUTO DIFF [HEME] Timed - Plan Plan:: ASSESSMENT AND PLAN PERITONSILLAR ABSCESS-improvement in pain and swallowing over the past 24 hours , afebrile, white blood cell count increased from yesterday -Soft diet -Pain medication as needed -Unasyn 1.5 g IV every 6 hours -if white blood cell count remains significantly elevated tomorrow, plan to proceed with repeat CT scan for reassessment MAINTENANCE ISSUES -DVT prophylaxis; ambulation -GI prophylaxis; not indicated -Leon catheter; not indicated -Nutrition; clear liquid diet -Nicotine dependence; 21 mg nicotinic patch CODE STATUS-FULL CODE ADMISSION STATUS-patient will be admitted to inpatient status, expect at least a 2 night hospital stay for evaluation and management of problems as outlined above. At the time of this admission I do not reasonably expected evaluation and management of this problem will require more than a 96 hour hospital stay. DISPOSITION-anticipate discharge to home after the hospital stay. PRIMARY CARE PROVIDER-
[2018-05-22] MEDS ORDERED: Melatonin 3 MG Tab PO SCH (21:00)
[2018-05-23] MEDS: Ampicillin/Sulbactam Na 1.5 GM in Sodium Chloride 0.9% 50 ML IV SCH ×2 (03:54→09:52)
[2018-05-23] MEDS: Acetaminophen 325 MG Tab PO PRN ×2 (04:00→08:31)
[2018-05-23] MEDS: HYDROmorphone 0.5 MG/0.5 ML Syringe IVPUSH PRN ×3 (04:00→12:29)
[2018-05-23] MEDS: Pantoprazole 40 MG Tab.CR PO SCH (08:28)
[2018-05-23] MEDS: Nicotine 21 MG/24 Hr Patch TRDERM SCH (08:38)
[2018-05-23] MEDS: Lactobacillus Rhamnosus GG (Probiotic) Cap PO SCH (08:38)
[2018-05-23 10:58] VITALS: BP 104/58
--- NOTE | 2018-05-23 12:55 | PCM.DCSUM1 ---
Discharge Summary - Hospital Course Brief History: Mr. Medina is a 42-year-old gentleman who was admitted through the emergency department with fever, dysphagia, throat pain, secondary to a peritonsillar abscess. - Discharge Data Discharge Date: 05/23/18 Discharge Disposition: Home, Self-Care 01 Condition: Fair - Discharge Diagnosis/Problem(s) (1) Peritonsillar abscess SNOMED Code(s): 59542211 ICD Code: J36 - PERITONSILLAR ABSCESS Status: Acute Priority: Low Current Visit: Yes - Patient Summary/Data Hospital Course: Mr. Medina is a 42-year-old gentleman who is admitted through the emergency department with pharyngitis, and dysphagia, as well as fever and chills. Symptoms have been per present in progressive over the past 2 days, more severe today with significant difficulty in swallowing because of pain. On evaluation in emergency department he was noted have temperature elevation as well as leukocytosis. Strep screen was negative as well as a Monospot. CT scan of the neck shows evidence of tonsillitis with a peritonsillar abscess. Abscess found to be 1.2-1.4 cm in size. Findings reviewed with the ENT feed inspection supervisor in [place], they recommended conservative management with IV antibiotic therapy and a dose of Decadron. He denies any significant difficulty with bleeding but does note significant pain and soreness with swallowing. On admission he was given IV fluids for hydration and antibiotic therapy with Unasyn was initiated. Over the next few days after hospitalization fever resolved as well as significant improvement in his neck and throat pain. He was tolerating a soft diet at the time of discharge and white blood cell count had almost normalized. He will be discharged home on oral antibiotic therapy with Augmentin for an additional 10 days. He will also be continued on probiotic therapy with lactobacillus twice daily. Activity will be as tolerated and he will resume his usual diet. Follow-up appointment will be scheduled with his primary care provider within one week. - Patient Instructions Diet: Usual Diet as Tolerated Activity: As Tolerated Other/Special Instructions: Please schedule follow-up appointment with primary care provider within one week. - Discharge Plan *PRESCRIPTION DRUG MONITORING PROGRAM REVIEWED*: Not Applicable *COPY OF PRESCRIPTION DRUG MONITORING REPORT IN PATIENT RAI: Not Applicable Prescriptions/Med Rec: Amoxicillin/Potassium Clav [Augmentin 875-125 Tablet] 1 each PO BID #20 tablet Lactobacillus Rhamnosus GG [Culturelle] 1 cap PO BID #60 cap Home Medications: Home Meds Amoxicillin/Potassium Clav [Augmentin 875-125 Tablet] 1 each PO BID #20 tablet 05/23/18 [Rx] Lactobacillus Rhamnosus GG [Culturelle] 1 cap PO BID #60 cap 05/23/18 [Rx] Referrals: PCP,None [Primary Care Provider] - - Discharge Summary/Plan Comment DC Time >30 min.: No - Patient Data Vitals - Most Recent: Last Vital Signs Temp 96 F 05/23/18 10:56 Pulse 59 L 05/23/18 10:56 Resp 16 05/23/18 10:56 BP 104/58 L 05/23/18 10:56 Pulse Ox 98 05/23/18 10:56 Weight - Most Recent: 260 lb I&O - Last 24 hours: Intake & Output 05/22/18 05/23/18 05/23/18 22:59 06:59 14:59 Intake Total 1045 50 410 Balance 1045 50 410 Lab Results - Last 24 hrs: Laboratory Results - last 24 hr 05/23/18 Range/Units 04:40 WBC 12.5 H (4.5-11.0) K/uL RBC 4.64 (4.30-5.90) M/uL Hgb 13.7 (12.0-15.0) g/dL Hct 40.2 (40.0-54.0) % MCV 87 (80-98) fL MCH 30 (27-31) pg MCHC 34 (32-36) % Plt Count 294 (150-400) K/uL Neut % (Auto) 65 (36-66) % Lymph % (Auto) 20 L (24-44) % [place] % (Auto) 13 H (2-6) % Eos % (Auto) 1 L (2-4) % Baso % (Auto) 1 (0-1) % NADIRA Results - Last 24 hrs: Microbiology 05/20/18 16:00 Quick Strep Confirmation Culture - Final Throat NO GROUP A STREP ISOLATED Group A Streptococcus Rapid Screen - Final NEGATIVE STREP A SCREEN Med Orders - Current: Current Medications Acetaminophen (Tylenol) 650 mg PO Q4H PRN PRN Reason: Pain (Mild 1-3)/fever Last Admin: 05/23/18 08:31 Dose: 650 mg Hydromorphone HCl (Dilaudid) 0.5 mg IVPUSH Q3H PRN PRN Reason: Pain Last Admin: 05/23/18 12:29 Dose: 0.5 mg Ampicillin Sodium/Sulbactam (Sodium 1.5 gm/ Sodium Chloride) 50 mls @ 100 mls/ hr IV Q6H [facility] Last Admin: 05/23/18 09:52 Dose: 100 mls/hr Lactobacillus Rhamnosus (Culturelle) 1 cap PO BID [facility] Last Admin: 05/23/18 08:38 Dose: 1 cap Melatonin (Melatonin) 9 mg PO BEDTIME [facility] Last Admin: 05/22/18 21:50 Dose: 9 mg Nicotine (Habitrol) 21 mg TRDERM DAILY [facility] Last Admin: 05/23/18 08:38 Dose: Not Given Ondansetron HCl (Zofran) 4 mg IV Q4H PRN PRN Reason: Nausea/Vomiting [facility] Last Admin: 05/23/18 08:28 Dose: 40 mg Sodium Chloride (Saline Flush) 10 ml FLUSH ASDIRECTED PRN PRN Reason: Keep Vein Open Discontinued Medications Acetaminophen (Tylenol) 650 mg PO ONETIME ONE Stop: 05/20/18 16:21 Last Admin: 05/20/18 16:30 Dose: 650 mg Calcium Carbonate/Glycine (Tums) 1,000 mg PO ONETIME ONE Stop: 05/21/18 23:46 Last Admin: 05/21/18 23:59 Dose: 1,000 mg Calcium Carbonate/Glycine (Tums) 1,000 mg PO ONETIME ONE Stop: 05/22/18 04:05 Last Admin: 05/22/18 04:28 Dose: 1,000 mg Calcium Carbonate/Glycine (Tums) 1,000 mg PO ONETIME ONE Stop: 05/22/18 05:12 Last Admin: 05/22/18 05:24 Dose: 1,000 mg Dexamethasone (Dexamethasone) 4 mg IVPUSH ONETIME ONE Stop: 05/20/18 18:50 Last Admin: 05/20/18 18:59 Dose: 4 mg Dexamethasone (Dexamethasone) 4 mg IVPUSH ONETIME ONE Stop: 05/21/18 07:01 Last Admin: 05/21/18 07:52 Dose: 4 mg Sodium Chloride (Normal Saline) 1,000 mls @ 999 mls/min IV .BOLUS ONE Stop: 05/20/18 17:00 Last Admin: 05/20/18 17:20 Dose: 999 mls/min Sodium Chloride (Normal Saline) 100 mls @ 3 mls/sec IV ASDIRECTED [facility] Last Admin: 05/20/18 17:46 Dose: 3 mls/sec Sodium Chloride (Normal Saline) 1,000 mls @ 125 mls/min IV .BOLUS ONE Stop: 05/20/18 19:02 Last Admin: 05/20/18 18:57 Dose: 125 mls/min Ampicillin Sodium/Sulbactam (Sodium 1.5 gm/ Sodium Chloride) 50 mls @ 100 mls/ hr IV Q6H [facility] Last Admin: 05/20/18 19:31 Dose: 100 mls/hr Ampicillin Sodium/Sulbactam (Sodium 1.5 gm/ Sodium Chloride) 50 mls @ 100 mls/ hr IV Q6H [facility] Last Admin: 05/20/18 22:17 Dose: Not Given Sodium Chloride (Normal Saline) 1,000 mls @ 125 mls/hr IV ASDIRECTED [facility] Last Admin: 05/21/18 02:41 Dose: 125 mls/hr Ampicillin Sodium/Sulbactam (Sodium 1.5 gm/ Sodium Chloride) 50 mls @ 100 mls/ hr IV Q6H [facility] Last Admin: 05/21/18 03:32 Dose: 100 mls/hr Potassium Chloride 20 meq/Lidocaine HCl 2 ml/ Sodium Chloride 112 mls @ 56 mls/ hr IV Q2H [facility] Stop: 05/21/18 13:29 Last Admin: 05/21/18 13:19 Dose: 56 mls/hr Iopamidol (Isovue-300 (61%)) 100 ml IV . DIRECTED [facility] Last Admin: 05/20/18 17:46 Dose: 100 ml Pantoprazole Sodium (Protonix Iv) 40 mg IVPUSH ONETIME ONE Stop: 05/22/18 04:53 Last Admin: 05/22/18 05:09 Dose: 40 mg - Exam General: Reports: Alert, Oriented, Cooperative, No Acute Distress Neck: Reports: Trachea Midline. Denies: Lymphadenopathy Lungs: Reports: Clear to Auscultation, Normal Respiratory Effort Cardiovascular: Reports: Regular Rate, Regular Rhythm, No Murmurs GI/Abdominal Exam: Soft, Non-Tender, No Organomegaly, No Distention
== END 2018-05-23 14:45 | disposition home or self-care (01) | DRG 153 ==
LOC: JP.ED 15:46 → JP.2SS 19:38
PROVIDERS: ADMIT Hospitalist; ATTEND Hospitalist
DX: J36 Peritonsillar abscess (principal); F17.210 Nicotine dependence, cigarettes, uncomplicated; Z79.2 Long term (current) use of antibiotics; Z88.7 Allergy status to serum and vaccine; R13.10 Dysphagia, unspecified
CPT/HCPCS: 36415; 70491; 80048; 80053; 83605; 85025; 86308; 87081; 87430; 96361; 96374; 96375; 99285-25; A9270-GY; C9113; J0287; J1100; J1170; J3480; J7030; J7050; Q9967